=== PATIENT | female | born 1965 | race African-American/Black ===

== ENCOUNTER 2017-04-26 10:06 | Emergency (ER) | payer OTHER ==
[~2017-04-26] VITALS: Ht 165.1 cm; Wt 106.8 kg
[2017-04-26] MEDS ORDERED: SIMV-260 PO (10:25)
[2017-04-26] MEDS ORDERED: ATEN25TA PO (10:25)
[2017-04-26] MEDS ORDERED: HYDR25TA PO (10:25)
[2017-04-26] MEDS ORDERED: NIFE10 PO (10:25)
[2017-04-26 11:07] VITALS: BP 140/77
[2017-04-26] MEDS ORDERED: IBUPROFEN 800 MG TABLET PO ONE (11:30)
== END 2017-04-26 12:27 | disposition home or self-care (01) ==
LOC: EMS 10:08
DX: S13.4XXA Sprain of ligaments of cervical spine, initial encounter (principal); S20.212A Contusion of left front wall of thorax, initial encounter; E78.00 Pure hypercholesterolemia, unspecified; I10 Essential (primary) hypertension; Z90.710 Acquired absence of both cervix and uterus; V89.2XXA Person injured in unspecified motor-vehicle accident, traffic, initial encounter; Y93.89 Activity, other specified; Y92.488 Other paved roadways as the place of occurrence of the external cause; Y99.8 Other external cause status
CPT/HCPCS: 99283